=== PATIENT | female | born 1980 | race Caucasian/White ===

== ENCOUNTER → 2019-04-05 | Outpatient (CLI) | payer BC ==
[~2019-04-05] MED LIST: BACTRIM DS 8001 TAB PO; BACTROBAN 22GM22 GM NAS; CEPHALEXIN500 M1 PO; CLINDAMYCIN HC300 MG PO; NO HOME MEDICATIONS; bcp
== END ==
LOC: COL.VAS 08:00
DX: I10 Essential (primary) hypertension (principal); N28.89 Other specified disorders of kidney and ureter

== ENCOUNTER → 2023-06-10 | Outpatient (CLI) | payer BC | LOC: MC.RAD 13:12 | DX: Z12.31 Encounter for screening mammogram for malignant neoplasm of breast (principal) ==